=== PATIENT | female | born 1945 | race Caucasian/White ===

== ENCOUNTER 2017-10-11 09:11 | Outpatient (CLI) | payer MEDICARE ==
[~2017-10-11 09:11] MED LIST: AMLO10TA4 PO; ASPI-1265 PO; BACL10TA2 PO; CITA-278 PO; DOXY25TA51 PO; FURO-150 PO; HYDR-565 PO; IBUP-1985 PO; LOSA1TAB39 PO; MAGN400C PO; MULT-1085 PO; OMEP20CA10 PO; POTA10TA10 PO
[2017-10-11 10:24] LABS: BASOPHILS # (AUTO) 0.1 X10'3 (0-0.2); BASOPHILS % (AUTO) 0.8 % (0-1); EOSINOPHILS % (AUTO) 8.2 % (0-6); HEMATOCRIT 33.5 % (35.0-45.0); HEMOGLOBIN 10.8 g/dl (12.0-16.0); LYMPHOCYTES # (AUTO) 1.5 X10'3 (1.1-4.8); LYMPHOCYTES % (AUTO) 13.1 % (21-51); MEAN CORPUSCULAR HEMOGLOBIN 24.6 PG (27.0-31.0); MEAN CORPUSCULAR HGB CONC 32.3 % (33.0-36.5); MEAN CORPUSCULAR VOLUME 76.3 FL (78-98); MEAN PLATELET VOLUME 8.3 FL (7.4-10.4); MONOCYTES # (AUTO) 0.6 X10'3 (0-0.9); NEUTROPHILS # (AUTO) 8.5 X10'3 (1.8-7.7); NEUTROPHILS % (AUTO) 72.9 % (42-75); PLATELET COUNT 365 X10'3 (140-440); RED BLOOD COUNT 4.39 X10'6 (4.20-5.60); RED CELL DISTRIBUTION WIDTH 14.9 % (11.5-14.5); WHITE BLOOD COUNT 11.6 X10'3 (4.5-11.0)
[2017-10-11 10:31] LABS: CLARITY,URINE CLEAR (Clear); COLOR,URINE YELLOW (Yellow); GLUCOSE, URINE NEGATIVE (Neg); KETONES,URINE NEGATIVE (Neg); LEUKOCYTE ESTERASE ,URINE NEGATIVE (Neg); NITRITES, URINE NEGATIVE (Neg); OCCULT BLOOD,URINE NEGATIVE (Neg); PROTEIN,URINE NEGATIVE (Neg); UROBILINOGEN,URINE 0.2 E.U/dL (0.2-1.0)
[2017-10-11 10:38] LABS: ALANINE AMINOTRANSFERASE 26 U/L (12-78); ALBUMIN 3.7 G/DL (3.4-5.0); ALBUMIN/GLOBULIN RATIO 1.1 (1.1-1.5); ALKALINE PHOSPHATASE 81 IU/L (46-116); ANION GAP 5 (8-16); ASPARTATE AMINO TRANSFERASE 18 U/L (10-37); BILIRUBIN,TOTAL 0.3 MG/DL (0.1-1.0); BLOOD UREA NITROGEN 13 MG/DL (7-18); BUN/CREATININE RATIO 14.9 (6.6-38.0); CALCIUM 8.6 MG/DL (8.5-10.1); CHLORIDE 104 MMOL/L (99-107); CREATININE 0.87 MG/DL (0.40-0.90); GLUCOSE 118 MG/DL (70-104); POTASSIUM 3.4 MMOL/L (3.5-5.1); SODIUM 140 MMOL/L (135-145); TOTAL PROTEIN 7.2 G/DL (6.4-8.2); UA COLLECTION TYPE CLN CATCH MIDSTREAM; eGFR 64 ML/MIN
[2017-10-11 10:40] LABS: CHOL/HDL RATIO 3.8 (0.00-4.99); CHOLESTEROL 196 MG/DL (0-200); HDL CHOLESTEROL 51 MG/DL (35-60); LDL CHOLESTEROL 131 MG/DL (50-100); TRIGLYCERIDES 148 MG/DL (20-135)
== END 2017-10-11 23:59 | disposition home or self-care (01) ==
LOC: LAB 09:11
PROVIDERS: ATTEND Nurse Practitioner Family
DX: I10 Essential (primary) hypertension (principal); E78.5 Hyperlipidemia, unspecified; J45.909 Unspecified asthma, uncomplicated; R53.83 Other fatigue; Z87.891 Personal history of nicotine dependence
CPT/HCPCS: 36415; 80053; 80061; 81003; 84436; 84443; 85025

== ENCOUNTER 2018-01-02 14:06 | Emergency (ER) | payer MEDICARE ==
[~2018-01-02] VITALS: Ht 157.5 cm; Wt 62.0 kg
[2018-01-02 14:33] LABS: BASOPHILS # (AUTO) 0.1 X10'3 (0-0.2); BASOPHILS % (AUTO) 0.7 % (0-1); EOSINOPHILS # (AUTO) 0.5 X10'3 (0-0.9); EOSINOPHILS % (AUTO) 4.8 % (0-6); HEMOGLOBIN 11.5 g/dl (12.0-16.0); LYMPHOCYTES # (AUTO) 2.8 X10'3 (1.1-4.8); LYMPHOCYTES % (AUTO) 26.7 % (21-51); MEAN CORPUSCULAR HGB CONC 32.9 % (33.0-36.5); MEAN CORPUSCULAR VOLUME 75.9 FL (78-98); MONOCYTES # (AUTO) 0.5 X10'3 (0-0.9); MONOCYTES % (AUTO) 4.9 % (2-12); NEUTROPHILS # (AUTO) 6.6 X10'3 (1.8-7.7); NEUTROPHILS % (AUTO) 62.9 % (42-75); PLATELET COUNT 351 X10'3 (140-440); RED BLOOD COUNT 4.61 X10'6 (4.20-5.60); RED CELL DISTRIBUTION WIDTH 17.7 % (11.5-14.5); WHITE BLOOD COUNT 10.5 X10'3 (4.5-11.0)
[2018-01-02 14:45] LABS: PARTIAL THROMBOPLASTIN TIME 28 SECONDS (22-32); PROTHROMBIN TIME 10.4 SECONDS (9.0-12.0)
[2018-01-02 14:57] LABS: ALANINE AMINOTRANSFERASE 26 U/L (12-78); ALBUMIN 3.8 G/DL (3.4-5.0); ALBUMIN/GLOBULIN RATIO 1.2 (1.1-1.5); ALKALINE PHOSPHATASE 75 IU/L (46-116); ANION GAP 12 (8-16); ASPARTATE AMINO TRANSFERASE 18 U/L (10-37); BILIRUBIN,TOTAL 0.4 MG/DL (0.1-1.0); BLOOD UREA NITROGEN 16 MG/DL (7-18); BUN/CREATININE RATIO 12.4 (6.6-38.0); CALCIUM 9.4 MG/DL (8.5-10.1); CHLORIDE 103 MMOL/L (99-107); CREATININE 1.29 MG/DL (0.40-0.90); GLUCOSE 133 MG/DL (70-104); MAGNESIUM 1.8 MG/DL (1.5-2.4); PHOSPHORUS 3.9 MG/DL (2.3-4.5); POTASSIUM 3.4 MMOL/L (3.5-5.1); SODIUM 142 MMOL/L (135-145); TOTAL CARBON DIOXIDE 26.7 MMOL/L (24-32); TOTAL PROTEIN 7.1 G/DL (6.4-8.2); eGFR 41 ML/MIN
[2018-01-02 15:07] LABS: CLARITY,URINE SLIGHTLY CLOUDY (Clear); COLOR,URINE YELLOW (Yellow); GLUCOSE, URINE NEGATIVE (Neg); KETONES,URINE TRACE mg/dl (Neg); LEUKOCYTE ESTERASE ,URINE NEGATIVE (Neg); NITRITES, URINE NEGATIVE (Neg); OCCULT BLOOD,URINE NEGATIVE (Neg); PROTEIN,URINE NEGATIVE (Neg); UROBILINOGEN,URINE 0.2 E.U/dL (0.2-1.0)
[2018-01-02 15:26] LABS: UA COLLECTION TYPE CLN CATCH MIDSTREAM
[2018-01-02 15:29] LABS: HYALINE CASTS >30 /LPF (NEGATIVE); SQUAMOUS EPITHELIAL CELL,UR MODERATE /LPF (FEW)
[2018-01-02 15:30] LABS: BACTERIA,URINE FEW /HPF (Neg); RBC,URINE 0-2 /HPF (0-2); WBC,URINE 0-4 /HPF (0-4)
[2018-01-02 15:57] VITALS: BP 132/66
== END 2018-01-02 16:00 | disposition home or self-care (01) ==
LOC: ER 14:06
DX: R00.2 Palpitations (principal); R53.1 Weakness; I10 Essential (primary) hypertension; I25.10 Atherosclerotic heart disease of native coronary artery without angina pectoris; E78.00 Pure hypercholesterolemia, unspecified; G89.29 Other chronic pain; M54.9 Dorsalgia, unspecified; Z88.0 Allergy status to penicillin; Z88.8 Allergy status to other drugs, medicaments and biological substances; Z79.82 Long term (current) use of aspirin
CPT/HCPCS: 36415; 71045; 80053; 81001; 83735; 84100; 84484; 85025; 85610; 85730; 93005; 99285

== ENCOUNTER 2018-01-30 11:08 | Outpatient (CLI) | payer MEDICARE ==
[~2018-01-30 11:08] MED LIST changes: +HYDR-4353 PO; -HYDR-565 PO
[2018-01-30 12:59] LABS: ALANINE AMINOTRANSFERASE 13 U/L (12-78); ALBUMIN 3.5 G/DL (3.4-5.0); ALKALINE PHOSPHATASE 70 IU/L (46-116); ANION GAP 8 (8-16); ASPARTATE AMINO TRANSFERASE 24 U/L (10-37); BILIRUBIN,TOTAL 0.3 MG/DL (0.1-1.0); BLOOD UREA NITROGEN 17 MG/DL (7-18); BUN/CREATININE RATIO 21.8 (6.6-38.0); CALCIUM 8.9 MG/DL (8.5-10.1); CHLORIDE 100 MMOL/L (99-107); CREATININE 0.78 MG/DL (0.40-0.90); GLUCOSE 68 MG/DL (70-104); POTASSIUM 3.1 MMOL/L (3.5-5.1); SODIUM 140 MMOL/L (135-145); TOTAL CARBON DIOXIDE 31.9 MMOL/L (24-32); TOTAL PROTEIN 6.9 G/DL (6.4-8.2); eGFR 73 ML/MIN
[2018-01-30 13:06] LABS: TOTAL PROTEIN,URINE RANDOM 9.3 MG/DL; UA PROTEIN/CREATININE RATIO 0.09 mg/mg Cr (0-0.16)
== END 2018-01-30 23:59 | disposition home or self-care (01) ==
LOC: LAB 11:08
PROVIDERS: ATTEND Family Medicine
DX: I10 Essential (primary) hypertension (principal); J45.909 Unspecified asthma, uncomplicated; Z98.51 Tubal ligation status; Z79.82 Long term (current) use of aspirin; Z79.899 Other long term (current) drug therapy; Z87.891 Personal history of nicotine dependence
CPT/HCPCS: 36415; 80053; 82570; 84156

== ENCOUNTER 2018-07-03 11:25 | Outpatient (CLI) | payer MEDICARE ==
[~2018-07-03 11:25] MED LIST changes: -CITA-278 PO; +CITA20TA28 PO
[2018-07-03 12:31] LABS: CLARITY,URINE CLEAR (Clear); COLOR,URINE YELLOW (Yellow); GLUCOSE, URINE NEGATIVE (Neg); KETONES,URINE NEGATIVE (Neg); LEUKOCYTE ESTERASE ,URINE NEGATIVE (Neg); NITRITES, URINE NEGATIVE (Neg); OCCULT BLOOD,URINE NEGATIVE (Neg); PROTEIN,URINE NEGATIVE (Neg); UROBILINOGEN,URINE 0.2 E.U/dL (0.2-1.0)
[2018-07-03 12:32] LABS: BASOPHILS # (AUTO) 0.1 X10'3 (0-0.2); EOSINOPHILS # (AUTO) 0.5 X10'3 (0-0.9); EOSINOPHILS % (AUTO) 6.7 % (0-6); HEMATOCRIT 31.3 % (35.0-45.0); HEMOGLOBIN 9.9 g/dl (12.0-16.0); LYMPHOCYTES # (AUTO) 1.4 X10'3 (1.1-4.8); LYMPHOCYTES % (AUTO) 20.5 % (21-51); MEAN CORPUSCULAR HEMOGLOBIN 21.9 PG (27.0-31.0); MEAN CORPUSCULAR HGB CONC 31.5 g/dL (33.0-36.5); MEAN CORPUSCULAR VOLUME 69.6 FL (78-98); MEAN PLATELET VOLUME 7.6 FL (7.4-10.4); MONOCYTES # (AUTO) 0.5 X10'3 (0-0.9); MONOCYTES % (AUTO) 6.7 % (2-12); NEUTROPHILS # (AUTO) 4.4 X10'3 (1.8-7.7); NEUTROPHILS % (AUTO) 64.1 % (42-75); PLATELET COUNT 463 X10'3 (140-440); RED BLOOD COUNT 4.49 X10'6 (4.20-5.60); RED CELL DISTRIBUTION WIDTH 16.1 % (11.5-14.5); WHITE BLOOD COUNT 6.9 X10'3 (4.5-11.0)
[2018-07-03 12:47] LABS: UA COLLECTION TYPE CLN CATCH MIDSTREAM
[2018-07-03 12:51] LABS: ALANINE AMINOTRANSFERASE 23 U/L (12-78); ALBUMIN 3.9 G/DL (3.4-5.0); ALBUMIN/GLOBULIN RATIO 1.2 (1.1-1.5); ALKALINE PHOSPHATASE 72 IU/L (46-116); ANION GAP 5 (8-16); ASPARTATE AMINO TRANSFERASE 15 U/L (10-37); BILIRUBIN,TOTAL 0.4 MG/DL (0.1-1.0); BLOOD UREA NITROGEN 15 MG/DL (7-18); BUN/CREATININE RATIO 15.8 (6.6-38.0); CALCIUM 9.2 MG/DL (8.5-10.1); CHLORIDE 102 MMOL/L (99-107); CHOLESTEROL 164 MG/DL (0-200); CREATININE 0.95 MG/DL (0.40-0.90); GLUCOSE 114 MG/DL (70-104); HDL CHOLESTEROL 55 MG/DL (35-60); LDL CHOLESTEROL 87 MG/DL (50-100); POTASSIUM 3.6 MMOL/L (3.5-5.1); SODIUM 139 MMOL/L (135-145); TOTAL CARBON DIOXIDE 32.3 MMOL/L (24-32); TOTAL PROTEIN 7.2 G/DL (6.4-8.2); TRIGLYCERIDES 138 MG/DL (20-135); eGFR 58 ML/MIN
[2018-07-03 13:28] LABS: PLATELET ESTIMATE INCREASED
[2018-07-03 13:29] LABS: ELLIPTOCYTES 2+
[2018-07-03 13:30] LABS: ANISOCYTOSIS 1+; MICROCYTOSIS 2+; POIKILOCYTOSIS FEW
== END 2018-07-03 23:59 | disposition home or self-care (01) ==
LOC: LAB 11:25
PROVIDERS: ATTEND Family Medicine
DX: I10 Essential (primary) hypertension (principal); E78.5 Hyperlipidemia, unspecified; J45.909 Unspecified asthma, uncomplicated; Z88.0 Allergy status to penicillin; Z87.891 Personal history of nicotine dependence; Z79.899 Other long term (current) drug therapy; Z88.8 Allergy status to other drugs, medicaments and biological substances
CPT/HCPCS: 36415; 80053; 80061; 81003; 83735; 84439; 84443; 85025

== ENCOUNTER 2018-07-28 11:40 | Inpatient (IN) | payer MEDICARE ==
[2018-07-17 15:52] LABS: BASOPHILS # (AUTO) 0.1 X10'3 (0-0.2); BASOPHILS % (AUTO) 1.4 % (0-1); EOSINOPHILS # (AUTO) 0.5 X10'3 (0-0.9); EOSINOPHILS % (AUTO) 5.4 % (0-6); LYMPHOCYTES # (AUTO) 2.7 X10'3 (1.1-4.8); MEAN CORPUSCULAR HEMOGLOBIN 23.1 PG (27.0-31.0); MEAN CORPUSCULAR HGB CONC 31.8 g/dL (33.0-36.5); MEAN CORPUSCULAR VOLUME 72.8 FL (78-98); MEAN PLATELET VOLUME 7.6 FL (7.4-10.4); MONOCYTES # (AUTO) 0.8 X10'3 (0-0.9); MONOCYTES % (AUTO) 9.7 % (2-12); NEUTROPHILS # (AUTO) 4.5 X10'3 (1.8-7.7); NEUTROPHILS % (AUTO) 52.5 % (42-75); PRE OP HEMATOCRIT 33.7 % (35.0-45.0); PRE OP PLATELET COUNT 366 X10'3 (140-440); RED BLOOD COUNT 4.63 X10'6 (4.20-5.60); RED CELL DISTRIBUTION WIDTH 19.9 % (11.5-14.5)
[2018-07-17 15:53] LABS: PRE OP HEMOGLOBIN 10.7 g/dL (12.0-16.0)
[2018-07-17 15:56] LABS: CLARITY,URINE CLEAR (Clear); COLOR,URINE YELLOW (Yellow); GLUCOSE, URINE NEGATIVE (Neg); KETONES,URINE TRACE mg/dl (Neg); LEUKOCYTE ESTERASE ,URINE NEGATIVE (Neg); NITRITES, URINE NEGATIVE (Neg); OCCULT BLOOD,URINE NEGATIVE (Neg); PH,URINE 6.5 (4.8-8.0); PROTEIN,URINE NEGATIVE (Neg); UROBILINOGEN,URINE 0.2 E.U/dL (0.2-1.0)
[2018-07-17 16:09] LABS: UA COLLECTION TYPE NON-SPECIFIED
[2018-07-17 16:15] LABS: ALBUMIN 3.8 G/DL (3.4-5.0); ALBUMIN/GLOBULIN RATIO 1.2 (1.1-1.5); ALKALINE PHOSPHATASE 70 IU/L (46-116); BLOOD UREA NITROGEN 13 MG/DL (7-18); BUN/CREATININE RATIO 13.1 (6.6-38.0); CALCIUM 9.5 MG/DL (8.5-10.1); CHLORIDE 103 MMOL/L (99-107); CREATININE 0.99 MG/DL (0.40-0.90); PRE OP ALT 24 U/L (30-65); PRE OP ANION GAP 9 (8-16); PRE OP AST 16 U/L (10-37); PRE OP BILIRUB, TOTAL 0.3 MG/DL (0.0-1.0); PRE OP GLUCOSE 104 MG/DL (70-104); PRE OP PROTIME 10.6 SECONDS (9.0-12.0); PRE OP SODIUM 141 MMOL/L (135-145); TOTAL CARBON DIOXIDE 28.8 MMOL/L (24-32); eGFR 55 ML/MIN
[2018-07-17 16:16] LABS: PRE OP POTASSIUM 3.3 MMOL/L (3.4-5.1)
[2018-07-17 16:24] LABS: MICROCYTOSIS 1+; PLATELET ESTIMATE NORMAL
[2018-07-17 16:25] LABS: ANISOCYTOSIS 2+; ELLIPTOCYTES 1+; SCHISTOCYTES FEW
[2018-07-28] VITALS (17 sets, daily range): BP systolic 118–174; BP diastolic 57–94
[~2018-07-28] VITALS: Ht 157.5 cm; Wt 70.6 kg
[~2018-07-28 11:40] MED LIST changes: -AMLO10TA4 PO; +AMLO5TAB4 PO; +ATOR20TA PO; -BACL10TA2 PO; +BIOT25008 PO; +CALC600T12 PO; +CHOL10002 PO; -CITA20TA28 PO; +CLOP75TA33 PO; +CYAN-19 PO; +DOCU-28 PO; -DOXY25TA51 PO; +DULO-31 PO; +FERR325T32 PO; -FURO-150 PO; -IBUP-1985 PO; +NORMAL SALINE IV ONE; +TRANEXAMIC ACID IV ONE; +TURM500C4 PO; +VANCOMYCIN INJ 1000 MG in NORMAL SALINE 250ml IV.SOLN IV ONE; +VITC500T PO; +acetaminophen 325mg tablet PO ONE; +celeCOXIB 100mg capsule PO ONE; +famotidine 20mg tablet PO ONE; +gabapentin 300mg capsule PO ONE; +oxyCODONE SR 10mg (sust. release) tab PO ONE; +ringers solution, lacted 1,000 ML IV SCH
[2018-07-28] MEDS ORDERED: LIDOcaine 1% (10mg/ml) 2ml vial ONE (11:55)
[2018-07-28] MEDS ORDERED: ceFAZolin 2gm in dextrose, iso 100 ML IV ONE (12:05)
[2018-07-28] MEDS ORDERED: ROPIVAcaine 0.5% (5mg/ml) 30ml vial ONE ×2 (12:52→13:23)
[2018-07-28] MEDS ORDERED: bacitracin inj 150,000 UNIT in sodium chloride irrig. sol 3,000 ML IR ONE (13:00)
[2018-07-28 13:20] LABS: ISTAT CREATININE 0.9 mg/dL (0.6-1.1); ISTAT HGB 12.9 g/dl (12.0-16.0); ISTAT IONIZED CALCIUM 1.18 mmol/L (1.03-1.32); ISTAT K 3.8 mmol/L (3.5-5.1); POC BUN/CREATININE RATIO 24.4 (6.6-38.0)
[2018-07-28] MEDS ORDERED: tetracaine 1% (10mg/ml) pres. free inj. ONE (13:24)
[2018-07-28] MEDS ORDERED: fentaNYL/PF 50MCG/1 ML 2ML syringe ONE (13:25)
[2018-07-28] MEDS ORDERED: MIDAZolam 1mg/ml 10ml vial ONE (13:25)
[2018-07-28] MEDS ORDERED: propofol inj 20 ML IV ONE ×2 (13:44→15:45)
[2018-07-28] MEDS ORDERED: ringers solution, lacted 1,000 ML IV SCH (14:28)
[2018-07-28] MEDS ORDERED: meperidine/PF 25mg/ml syringe IV PRN ×3 (14:30)
[2018-07-28] MEDS ORDERED: proCHLORperazine 10 MG/2 ml inj IV PRN (14:30)
[2018-07-28] MEDS ORDERED: morphine 4 MG/ML inj SYRINge IV PRN ×2 (14:30)
[2018-07-28] MEDS ORDERED: ondansetron/PF 4mg/2ml inj IV PRN ×2 (14:30→15:40)
[2018-07-28] MEDS ORDERED: ceFAZolin 1000mg inj ONE (15:02)
[2018-07-28] MEDS ORDERED: acetaminophen 325mg tablet PO PRN (15:40)
[2018-07-28] MEDS ORDERED: oxyCODONE/APAP 10/325mg tablet PO PRN (15:40)
[2018-07-28] MEDS ORDERED: magnesium hydroxide 30ml (MOM) UD suspension PO PRN (15:40)
[2018-07-28] MEDS ORDERED: diphenhydrAMINE 25mg capsule PO PRN ×2 (15:40)
[2018-07-28] MEDS ORDERED: bisacodyl 10mg suppository rectal RC PRN (15:40)
[2018-07-28] MEDS ORDERED: ceFAZolin 1GM/D5W- ADD-VANTAGE 50 ML IV SCH (16:00)
[2018-07-28] MEDS: docusate sod 100mg capsule PO SCH (16:00)
--- NOTE | 2018-07-28 16:09 | NUR ---
Received from OR via , accompanied by Anesthesiologist DR BEST and report given by Anesthesiolgist. AWAKE AND SILVIO PAIN. VITALS STABLE. DRESSING DI. SENSATION AT NIPPLE LINE. SALTER WITH CLEAR URINE.
--- NOTE | 2018-07-28 17:09 | NUR ---
Report called to receiving nurse. Transferred via BED Belongings . Special Issues communicated to receiving nurse. AWAKE AND ORIENTED. VITALS STABLE. DRESSING DI. SILVIO PAIN. TO ORTHO RM [id number] AT THIS TIME.
--- NOTE | 2018-07-28 18:27 | NUR ---
RECEIVED REPORT FROM LISA GLASS AND ASSUMED PATIENT CARE
--- NOTE | 2018-07-28 18:35 | NUR ---
Report to Lindsay GLASS
[2018-07-28] MEDS: potassium cl 20mEq in 1/2 NS 1,000 ML IV SCH ×2 (20:28→23:38)
[2018-07-28] MEDS: atorvastatin 20mg tablet PO SCH (20:29)
[2018-07-28] MEDS: sennosides 8.6mg tablet PO SCH (20:29)
[2018-07-28] MEDS: gabapentin 300mg capsule PO SCH (20:29)
[2018-07-28] MEDS: ascorbic acid 500mg tablet PO SCH (20:29)
[2018-07-28] MEDS: oxyCODONE/APAP 10/325mg tablet PO PRN (21:19)
[2018-07-28] MEDS: amLODIPine 5mg tablet PO SCH (22:12)
[2018-07-28] MEDS: ceFAZolin 1GM/D5W- ADD-VANTAGE 50 ML IV SCH (23:30)
[2018-07-28] MEDS: HYDROmorphone inj. 0.5 MG/0.5 ML DISP.SYRIN IV PRN (23:32)
[2018-07-29 02:00] VITALS: BP 143/65
[2018-07-29] MEDS: oxyCODONE/APAP 10/325mg tablet PO PRN ×4 (03:31→20:21)
[2018-07-29 05:00] VITALS: BP 142/55
[2018-07-29] MEDS: HYDROmorphone inj. 0.5 MG/0.5 ML DISP.SYRIN IV PRN ×2 (05:32→15:45)
[2018-07-29] MEDS: potassium cl 20mEq in 1/2 NS 1,000 ML IV SCH ×2 (05:33→20:23)
--- NOTE | 2018-07-29 06:16 | NUR ---
REPORT GIVEN TO LISA GLASS
[2018-07-29 06:53] LABS: ANION GAP 7 (8-16); CHLORIDE 104 MMOL/L (99-107); POTASSIUM 3.7 MMOL/L (3.5-5.1); SODIUM 137 MMOL/L (135-145)
[2018-07-29 07:02] LABS: BASOPHILS # (AUTO) 0.1 X10'3 (0-0.2); BASOPHILS % (AUTO) 0.5 % (0-1); EOSINOPHILS # (AUTO) 0.1 X10'3 (0-0.9); EOSINOPHILS % (AUTO) 1.2 % (0-6); HEMATOCRIT 29.9 % (35.0-45.0); HEMOGLOBIN 9.5 g/dl (12.0-16.0); LYMPHOCYTES # (AUTO) 0.7 X10'3 (1.1-4.8); LYMPHOCYTES % (AUTO) 7.1 % (21-51); MEAN CORPUSCULAR HEMOGLOBIN 24.5 PG (27.0-31.0); MEAN CORPUSCULAR HGB CONC 31.7 g/dL (33.0-36.5); MEAN CORPUSCULAR VOLUME 77.1 FL (78-98); MEAN PLATELET VOLUME 8.5 FL (7.4-10.4); MONOCYTES # (AUTO) 0.6 X10'3 (0-0.9); MONOCYTES % (AUTO) 6.3 % (2-12); NEUTROPHILS # (AUTO) 8.6 X10'3 (1.8-7.7); NEUTROPHILS % (AUTO) 84.9 % (42-75); PLATELET COUNT 244 X10'3 (140-440); RED BLOOD COUNT 3.88 X10'6 (4.20-5.60); RED CELL DISTRIBUTION WIDTH 25.6 % (11.5-14.5); WHITE BLOOD COUNT 10.2 X10'3 (4.5-11.0)
[2018-07-29 07:20] LABS: ANISOCYTOSIS 3+; MICROCYTOSIS 1+; PLATELET ESTIMATE NORMAL
[2018-07-29 07:21] LABS: HYPOCHROMASIA 1+
[2018-07-29] MEDS: losartan 50mg tablet PO SCH (07:43)
[2018-07-29] MEDS: HYDROchlorothiazide 25mg tablet PO SCH (07:43)
[2018-07-29] MEDS: ceFAZolin 1GM/D5W- ADD-VANTAGE 50 ML IV SCH (07:43)
[2018-07-29] MEDS: ascorbic acid 500mg tablet PO SCH ×2 (07:44→20:21)
[2018-07-29] MEDS: duloxetine 30mg CAPSULE.DR PO SCH (07:44)
[2018-07-29] MEDS: docusate sod 100mg capsule PO SCH ×3 (07:44→17:50)
[2018-07-29] MEDS: multivitamins, therapeutics tablet PO SCH (07:44)
[2018-07-29] MEDS: gabapentin 300mg capsule PO SCH ×3 (07:44→20:19)
[2018-07-29] MEDS: pantoprazole 40mg Tablet.DR PO SCH (07:44)
[2018-07-29 07:47] LABS: INR 1.6 INR
[2018-07-29] MEDS ORDERED: POTASSIUM CHLORIDE 99 MG PO SCH (08:00)
[2018-07-29 10:00] VITALS: BP 160/44
[2018-07-29] MEDS ORDERED: warfarin 3mg tablet PO ONE (10:00)
[2018-07-29 18:00] VITALS: BP 123/54
--- NOTE | 2018-07-29 18:27 | NUR ---
RECEIVED REPORT FROM LISA GLASS AND ASSUMED PATIENT CARE
--- NOTE | 2018-07-29 18:34 | NUR ---
Report to Lindsay GLASS
[2018-07-29] MEDS: atorvastatin 20mg tablet PO SCH (20:21)
[2018-07-29] MEDS: celeCOXIB 100mg capsule PO SCH (20:21)
[2018-07-29] MEDS: sennosides 8.6mg tablet PO SCH (20:22)
[2018-07-29] MEDS: amLODIPine 5mg tablet PO SCH (20:22)
[2018-07-29 22:00] VITALS: BP 134/47
[2018-07-30] MEDS: oxyCODONE/APAP 10/325mg tablet PO PRN ×5 (02:03→19:10)
[2018-07-30] MEDS: potassium cl 20mEq in 1/2 NS 1,000 ML IV SCH ×2 (04:54→07:38)
[2018-07-30 06:10] VITALS: BP 140/47
--- NOTE | 2018-07-30 06:15 | NUR ---
Patient in room ORTHO 4013. I have received report from MEL GLASS and had the opportunity to ask questions and assume patient care.
--- NOTE | 2018-07-30 06:15 | NUR ---
REPORT GIVEN TO JOHN GLASS
[2018-07-30 06:22] LABS: BASOPHILS % (AUTO) 0.2 % (0-1); EOSINOPHILS # (AUTO) 0.5 X10'3 (0-0.9); EOSINOPHILS % (AUTO) 4.9 % (0-6); LYMPHOCYTES # (AUTO) 2.3 X10'3 (1.1-4.8); LYMPHOCYTES % (AUTO) 22.5 % (21-51); MEAN CORPUSCULAR HEMOGLOBIN 24.8 PG (27.0-31.0); MEAN CORPUSCULAR VOLUME 77.3 FL (78-98); MEAN PLATELET VOLUME 8.4 FL (7.4-10.4); MONOCYTES % (AUTO) 9.8 % (2-12); NEUTROPHILS # (AUTO) 6.3 X10'3 (1.8-7.7); NEUTROPHILS % (AUTO) 62.6 % (42-75); PLATELET COUNT 208 X10'3 (140-440); RED BLOOD COUNT 3.63 X10'6 (4.20-5.60); RED CELL DISTRIBUTION WIDTH 25.7 % (11.5-14.5); WHITE BLOOD COUNT 10.1 X10'3 (4.5-11.0)
[2018-07-30 06:45] LABS: INR 3.1 INR
[2018-07-30 07:23] LABS: ANISOCYTOSIS 3+; MICROCYTOSIS 1+; PLATELET ESTIMATE NORMAL
[2018-07-30 07:24] LABS: ELLIPTOCYTES 1+
[2018-07-30 09:00] VITALS: BP 154/50
[2018-07-30] MEDS: celeCOXIB 100mg capsule PO SCH ×2 (09:28→20:43)
[2018-07-30] MEDS: HYDROchlorothiazide 25mg tablet PO SCH (09:28)
[2018-07-30] MEDS: docusate sod 100mg capsule PO SCH ×3 (09:28→16:06)
[2018-07-30] MEDS: losartan 50mg tablet PO SCH (09:28)
[2018-07-30] MEDS: duloxetine 30mg CAPSULE.DR PO SCH (09:29)
[2018-07-30] MEDS: pantoprazole 40mg Tablet.DR PO SCH (09:29)
[2018-07-30] MEDS: ascorbic acid 500mg tablet PO SCH ×2 (09:29→20:43)
[2018-07-30] MEDS: multivitamins, therapeutics tablet PO SCH (09:29)
[2018-07-30 10:00] VITALS: BP 150/64
--- NOTE | 2018-07-30 15:38 | NUR ---
Joint consult: Pt s/p surgery to right knee. Pt seen at bedside given written and verbal protein ed with RD contact information. Pt requests meal change for dinner анна patel/judi chu. Pt currently on a regular diet with documented PO intake 75% meeting nutrient needs. Will continue to follow. Addendum: 07/30/18 at [address] Amended: Links added.
[2018-07-30] MEDS ORDERED: acetaminophen 325mg tablet PO PRN (15:40)
[2018-07-30 18:00] VITALS: BP 128/45
--- NOTE | 2018-07-30 18:15 | NUR ---
Problems reprioritized. Patient report given, questions answered & plan of care reviewed with JUAN GLASS.
--- NOTE | 2018-07-30 18:30 | NUR ---
PATIENT REPORT RECEIVED FROM JOHN GLASS.
[2018-07-30] MEDS: amLODIPine 5mg tablet PO SCH (20:43)
[2018-07-30] MEDS: atorvastatin 20mg tablet PO SCH (20:44)
[2018-07-30] MEDS: sennosides 8.6mg tablet PO SCH (20:47)
--- NOTE | 2018-07-31 00:02 | NUR ---
Changed pt's knee wrap to non-silver medium (silver medium out of stock), and replaced powder pack. Pt tolerated well.
[2018-07-31] MEDS: docusate sod 100mg capsule PO SCH ×2 (00:06→07:40)
[2018-07-31] MEDS: oxyCODONE/APAP 10/325mg tablet PO PRN ×2 (02:26→12:29)
[2018-07-31 05:57] LABS: BASOPHILS # (AUTO) 0.1 X10'3 (0-0.2); BASOPHILS % (AUTO) 0.6 % (0-1); EOSINOPHILS # (AUTO) 0.5 X10'3 (0-0.9); EOSINOPHILS % (AUTO) 5.1 % (0-6); HEMATOCRIT 26.9 % (35.0-45.0); HEMOGLOBIN 8.7 g/dl (12.0-16.0); LYMPHOCYTES # (AUTO) 1.6 X10'3 (1.1-4.8); LYMPHOCYTES % (AUTO) 16.7 % (21-51); MEAN CORPUSCULAR HEMOGLOBIN 24.6 PG (27.0-31.0); MEAN CORPUSCULAR HGB CONC 32.2 g/dL (33.0-36.5); MEAN CORPUSCULAR VOLUME 76.5 FL (78-98); MEAN PLATELET VOLUME 8.5 FL (7.4-10.4); MONOCYTES # (AUTO) 0.8 X10'3 (0-0.9); MONOCYTES % (AUTO) 8.1 % (2-12); NEUTROPHILS # (AUTO) 6.8 X10'3 (1.8-7.7); NEUTROPHILS % (AUTO) 69.5 % (42-75); PLATELET COUNT 210 X10'3 (140-440); RED BLOOD COUNT 3.52 X10'6 (4.20-5.60); WHITE BLOOD COUNT 9.8 X10'3 (4.5-11.0)
--- NOTE | 2018-07-31 06:11 | NUR ---
Problems reprioritized. Patient report given to Camille GLASS, questions answered & plan of care reviewed with her.
--- NOTE | 2018-07-31 06:14 | NUR ---
Received report from Rogelio GLASS
[2018-07-31 06:17] LABS: INR 2.8 INR
[2018-07-31 06:37] LABS: PLATELET ESTIMATE NORMAL
[2018-07-31 06:38] LABS: ANISOCYTOSIS 3+; ELLIPTOCYTES FEW; MICROCYTOSIS 1+
[2018-07-31 07:05] VITALS: BP 121/50
[2018-07-31] MEDS: duloxetine 30mg CAPSULE.DR PO SCH (07:39)
[2018-07-31] MEDS: celeCOXIB 100mg capsule PO SCH (07:39)
[2018-07-31] MEDS: ascorbic acid 500mg tablet PO SCH (07:40)
[2018-07-31] MEDS: multivitamins, therapeutics tablet PO SCH (07:40)
[2018-07-31] MEDS: losartan 50mg tablet PO SCH (07:40)
[2018-07-31] MEDS: HYDROchlorothiazide 25mg tablet PO SCH (07:40)
[2018-07-31] MEDS: pantoprazole 40mg Tablet.DR PO SCH (07:41)
[2018-07-31 09:35] VITALS: BP 114/38
--- NOTE | 2018-07-31 13:25 | NUR ---
Patient left to [facility] and tele was removed room patient.
== END 2018-07-31 13:15 | DRG 470 ==
LOC: PAS IN 11:40 → EDSTATUS 13:45 → ORTHO 4S 17:30
PROVIDERS: ADMIT Specialist; ATTEND Specialist
PROC: 3E0T3BZ Introduction of Anesthetic Agent into Peripheral Nerves and Plexi, Percutaneous Approach (ICD-10-PCS; 2018-07-28)
PROC: 0SRC0J9 Replacement of Right Knee Joint with Synthetic Substitute, Cemented, Open Approach (ICD-10-PCS; principal; 2018-07-28 13:21)
DX: M17.11 Unilateral primary osteoarthritis, right knee (principal); D62 Acute posthemorrhagic anemia; E78.5 Hyperlipidemia, unspecified; I10 Essential (primary) hypertension; K21.9 Gastro-esophageal reflux disease without esophagitis; M21.161 Varus deformity, not elsewhere classified, right knee; F41.8 Other specified anxiety disorders; M25.761 Osteophyte, right knee; Z88.0 Allergy status to penicillin; Z88.8 Allergy status to other drugs, medicaments and biological substances; Z79.899 Other long term (current) drug therapy; Z79.02 Long term (current) use of antithrombotics/antiplatelets; Z87.891 Personal history of nicotine dependence; Z95.828 Presence of other vascular implants and grafts
CPT/HCPCS: 36415; 73560; 80047; 80051; 80053; 81003; 85025; 85610; 85730; 87070; 97110; 97116; 97162; 97530; A6449; A6455; A7000; C1713; C1758; C1776; G0378; J0690; J1170; J2250; J2704; J2795; J3010; J3370; J3490; J7030; J7120

== ENCOUNTER 2020-03-11 12:46 | Emergency (ER) | payer MEDICARE ==
[~2020-03-11] VITALS: Ht 157.5 cm; Wt 65.9 kg
[~2020-03-11 12:46] MED LIST changes: -CALC600T12 PO; +CALC600T15 PO; -CYAN-19 PO; +CYAN-51 PO; -NORMAL SALINE IV ONE; -OMEP20CA10 PO; +OMEP20CA15 PO; -TRANEXAMIC ACID IV ONE; -VANCOMYCIN INJ 1000 MG in NORMAL SALINE 250ml IV.SOLN IV ONE; -acetaminophen 325mg tablet PO ONE; -celeCOXIB 100mg capsule PO ONE; -famotidine 20mg tablet PO ONE; -gabapentin 300mg capsule PO ONE; -oxyCODONE SR 10mg (sust. release) tab PO ONE; -ringers solution, lacted 1,000 ML IV SCH
[2020-03-11] MEDS ORDERED: morphine 10mg/ml inj. IV ONE (13:20)
[2020-03-11 13:41] LABS: BASOPHILS # (AUTO) 0.1 X10'3 (0-0.2); BASOPHILS % (AUTO) 1.2 % (0-1); EOSINOPHILS # (AUTO) 0.4 X10'3 (0-0.9); EOSINOPHILS % (AUTO) 3.1 % (0-6); HEMATOCRIT 35.5 % (35.0-45.0); HEMOGLOBIN 11.7 g/dl (12.0-16.0); LYMPHOCYTES # (AUTO) 2.5 X10'3 (1.1-4.8); LYMPHOCYTES % (AUTO) 19.9 % (21-51); MEAN CORPUSCULAR HEMOGLOBIN 27.2 PG (27.0-31.0); MEAN CORPUSCULAR VOLUME 82.6 FL (78-98); MEAN PLATELET VOLUME 8.2 FL (7.4-10.4); MONOCYTES # (AUTO) 0.8 X10'3 (0-0.9); MONOCYTES % (AUTO) 6.5 % (2-12); NEUTROPHILS # (AUTO) 8.5 X10'3 (1.8-7.7); NEUTROPHILS % (AUTO) 69.3 % (42-75); PLATELET COUNT 318 X10'3 (140-440); RED CELL DISTRIBUTION WIDTH 15.7 % (11.5-14.5); WHITE BLOOD COUNT 12.3 X10'3 (4.5-11.0)
[2020-03-11 13:50] LABS: ANION GAP 10 (8-16); BLOOD UREA NITROGEN 16 MG/DL (7-18); BUN/CREATININE RATIO 21.3 (6.6-38.0); CALCIUM 9.3 MG/DL (8.5-10.1); CHLORIDE 101 MMOL/L (99-107); CREATININE 0.75 MG/DL (0.40-0.90); GLUCOSE 100 MG/DL (70-104); POTASSIUM 3.6 MMOL/L (3.5-5.1); SODIUM 140 MMOL/L (135-145); TOTAL CARBON DIOXIDE 28.8 MMOL/L (24-32); eGFR 76 ML/MIN
[2020-03-11] MEDS ORDERED: iohexol 300mg/ml 100ml inj. ONE (14:26)
--- NOTE | 2020-03-11 16:13 | NUR ---
spoke to dr lockett regarding patient's chest ct that noted a concern for neoplasm. discharge is cancelled. dr lockett is aware that her pain is left sided "my ribs" which is near the mass noted on ct scan. discussed persistent pain, orders received
[2020-03-11] MEDS ORDERED: ondansetron/PF 4mg/2ml inj IV ONE (16:15)
[2020-03-11] MEDS ORDERED: morphine 4 MG/ML inj SYRINge IV ONE (16:15)
--- NOTE | 2020-03-11 17:45 | NUR ---
DR Martinez TALKING TO DR THURSTON
[2020-03-11] MEDS ORDERED: ONDA4TAB6 PO (18:04)
[2020-03-11] MEDS ORDERED: HYDR-3965 PO (18:04)
[2020-03-11 18:33] VITALS: BP 155/76
== END 2020-03-11 18:35 | disposition home or self-care (01) ==
LOC: ER 12:47
DX: S20.212A Contusion of left front wall of thorax, initial encounter (principal); R10.9 Unspecified abdominal pain; M54.6 Pain in thoracic spine; I10 Essential (primary) hypertension; E78.00 Pure hypercholesterolemia, unspecified; G89.29 Other chronic pain; Z88.0 Allergy status to penicillin; Z88.8 Allergy status to other drugs, medicaments and biological substances; Z79.899 Other long term (current) drug therapy; Z79.82 Long term (current) use of aspirin; W19.XXXA Unspecified fall, initial encounter; Z91.81 History of falling; Y93.E8 Activity, other personal hygiene; Y92.091 Bathroom in other non-institutional residence as the place of occurrence of the external cause; Y99.8 Other external cause status
CPT/HCPCS: 36415; 71260; 74177; 80048; 85025; 96374; 96375; 96376; 99285; J2270; J2405; Q9967

== ENCOUNTER 2020-11-12 12:37 | Emergency (ER) | payer MEDICARE ==
[~2020-11-12] VITALS: Ht 157.5 cm; Wt 63.6 kg
[~2020-11-12 12:37] MED LIST changes: -BIOT25008 PO; -CALC600T15 PO; +CALC600T35 PO; -CLOP75TA33 PO; -CYAN-51 PO; -DOCU-28 PO; -FERR325T32 PO; +HYDR-3972 PO; -HYDR-4353 PO; -POTA10TA10 PO; +POTA99TA18 PO
[2020-11-12 13:22] VITALS: BP 119/63
--- NOTE | 2020-11-12 15:11 | NUR ---
PT WAS SEEN AND TREATED BY DR. MAY. NURSES CHARTING NA
== END 2020-11-12 15:14 | disposition home or self-care (01) ==
LOC: ER 12:38
DX: S50.12XA Contusion of left forearm, initial encounter (principal); S60.222A Contusion of left hand, initial encounter; S63.502A Unspecified sprain of left wrist, initial encounter; I25.10 Atherosclerotic heart disease of native coronary artery without angina pectoris; E78.00 Pure hypercholesterolemia, unspecified; I10 Essential (primary) hypertension; G89.29 Other chronic pain; Z85.118 Personal history of other malignant neoplasm of bronchus and lung; Z90.2 Acquired absence of lung [part of]; Z88.8 Allergy status to other drugs, medicaments and biological substances; Z88.0 Allergy status to penicillin; Z79.82 Long term (current) use of aspirin; Z79.899 Other long term (current) drug therapy; W19.XXXA Unspecified fall, initial encounter; Y93.89 Activity, other specified; Y92.89 Other specified places as the place of occurrence of the external cause; Y99.8 Other external cause status
CPT/HCPCS: 29125; 73110; 73130; 99284

== ENCOUNTER 2022-03-01 15:58 | Emergency (ER) | payer MEDICARE ==
[~2022-03-01] VITALS: Ht 157.5 cm; Wt 65.0 kg
[~2022-03-01 15:58] MED LIST changes: -AMLO5TAB4 PO; -CHOL10002 PO; +METO-395 PO; -POTA99TA18 PO
[2022-03-01] MEDS ORDERED: normal saline 1000ml 1,000 ML IV ONE (16:10)
[2022-03-01] MEDS ORDERED: diltiazem 5mg/ml 5ml inj. IV ONE (16:10)
[2022-03-01 16:45] LABS: BASOPHILS % (AUTO) 0.1 % (0-1); EOSINOPHILS % (AUTO) 0.1 % (0-6); HEMATOCRIT 36.4 % (35.0-45.0); LYMPHOCYTES # (AUTO) 0.2 X10'3 (1.1-4.8); LYMPHOCYTES % (AUTO) 4.3 % (21-51); MEAN CORPUSCULAR HEMOGLOBIN 27.4 PG (27.0-31.0); MEAN CORPUSCULAR HGB CONC 32.9 g/dL (33.0-36.5); MEAN CORPUSCULAR VOLUME 83.4 FL (78-98); MEAN PLATELET VOLUME 8.5 FL (7.4-10.4); MONOCYTES # (AUTO) 0.1 X10'3 (0-0.9); MONOCYTES % (AUTO) 2.5 % (2-12); NEUTROPHILS # (AUTO) 5.2 X10'3 (1.8-7.7); PLATELET COUNT 208 X10'3 (140-440); RED BLOOD COUNT 4.37 X10'6 (4.20-5.60); RED CELL DISTRIBUTION WIDTH 15.1 % (11.5-14.5); WHITE BLOOD COUNT 5.6 X10'3 (4.5-11.0)
[2022-03-01 16:57] LABS: ALANINE AMINOTRANSFERASE 25 U/L (12-78); ALBUMIN 3.7 G/DL (3.4-5.0); ALBUMIN/GLOBULIN RATIO 0.8 (1.1-1.5); ALKALINE PHOSPHATASE 97 IU/L (46-116); ANION GAP 11 (8-16); ASPARTATE AMINO TRANSFERASE 20 U/L (10-37); BILIRUBIN,TOTAL 0.6 MG/DL (0.1-1.0); BLOOD UREA NITROGEN 22 MG/DL (7-18); BUN/CREATININE RATIO 23.4 (6.6-38.0); CALCIUM 9.7 MG/DL (8.5-10.1); CHLORIDE 96 MMOL/L (99-107); CREATININE 0.94 MG/DL (0.40-0.90); GLUCOSE 230 MG/DL (70-104); POTASSIUM 4.4 MMOL/L (3.5-5.1); SODIUM 133 MMOL/L (135-145); TOTAL CARBON DIOXIDE 26.4 MMOL/L (24-32); TOTAL PROTEIN 8.1 G/DL (6.4-8.2); eGFR 58 ML/MIN
[2022-03-01 17:03] LABS: MAGNESIUM 1.8 MG/DL (1.5-2.4)
[2022-03-01] MEDS: metoprolol tartrate 1mg/ml inj IV SCH ×3 (17:25→17:42)
[2022-03-01] MEDS ORDERED: propofol 10mg/ml 20ml vial IV ONE (18:05)
[2022-03-01] MEDS ORDERED: metoprolol succinate 25mg (24-HOUR) SR. Tablet PO ONE (19:10)
[2022-03-01] MEDS ORDERED: metoprolol tartrate 12.5mg (1/2 tablet) PO ONE (19:30)
[2022-03-01 20:06] VITALS: BP 18/135
== END 2022-03-01 19:40 | disposition home or self-care (01) ==
LOC: ER 15:58
DX: I48.20 Chronic atrial fibrillation, unspecified (principal); I11.0 Hypertensive heart disease with heart failure; E78.00 Pure hypercholesterolemia, unspecified; G89.29 Other chronic pain; M54.59 Other low back pain; F32.A Depression, unspecified; Z88.8 Allergy status to other drugs, medicaments and biological substances; Z88.0 Allergy status to penicillin; Z79.899 Other long term (current) drug therapy; Z79.82 Long term (current) use of aspirin
CPT/HCPCS: 36415; 71045; 80053; 83605; 83735; 83880; 84145; 84484; 85025; 85610; 92960; 93005; 96374; 99285; J2704; J3490; J7030; 94760